=== PATIENT | female | born 2000 | race Two or more races ===

== ENCOUNTER 2021-06-29 18:24 | Emergency (ER) | payer MEDICAID ==
--- NOTE | 2021-06-29 19:47 | ERPHSYRPT ---
- History of Present Illness Historian: patient Exam Limitations: no limitations Patient Subjective Stated Complaint: Pt states that she woke up around 1400 today with her medial abdomen hurting, denies N&V but she did make herself vomit thinking she would feel better Triage Nursing Assessment: Pt was brought to the ER by her boyfriend, kat wnl, rates abdominal pain as a 4/10 but it did get up to a 9/10, skin n/w/d, pulses normal, pain with palpatation to her upper medial abdomen, last BM today, last intake yesterday, doesn't appear to be in any distress Physician History: 20 yo F w epigastric pain x 6 hrs. Pain is sharp, 3/10, and worse w movement. It has been up to a 10. She has had mild diarrhea wo N/V/dysuria/hematuria/fever/cough/coryza. Pt is fully vaccinated against CV19. Timing/Duration: other (6 hrs) Quality: sharpness Abdominal Pain Onset Location: epigastric Pain Radiation: no radiation Severity of Pain-Max: severe Severity of Pain-Current: mild Modifying Factors: Improves With: movement Associated Symptoms: diarrhea, No back, No chest pain, No diaphoresis, No fever/chills, No fatigue, No headache, No heartburn, No loss of appetite, No nausea, No neck pain, No rash, No shortness of breath, No syncope, No vomiting, No weakness Previous symptoms: no prior history Allergies/Adverse Reactions: No Known Drug Allergies Allergy (Verified 06/29/21 18:51) Home Medications: No Reportable Medications [No Reported Medications] 06/29/21 [History] Travel Risk - International Travel Have you traveled outside of the country in past 3 weeks: No - Coronavirus Screening Are you exhibiting any of the following symptoms?: No Close contact with a COVID-19 positive Pt in past 14-21 Days: No - Vaccine Status Have you recieved a Covid-19 vaccination: Yes 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 - Vaccination Dates Date of 2cond Vaccination (if applicable): 03/2021 - Review of Systems Constitutional: No Symptoms Eyes: No Symptoms Ears, Nose, & Throat: No Symptoms Respiratory: No Symptoms Cardiac: No Symptoms Abdominal/Gastrointestinal: No Symptoms, Abdominal Pain, Diarrhea Genitourinary Symptoms: No Symptoms Musculoskeletal: No Symptoms Skin: No Symptoms Neurological: No Symptoms Psychological: No Symptoms Endocrine: No Symptoms Hematologic/Lymphatic: No Symptoms Immunological/Allergic: No Symptoms - Past Medical History Pertinent Past Medical History: No - Past Surgical History Past Surgical History: No - Social History Smoking Status: Never smoker Exposure to second hand smoke: No Drug Use: none Patient Lives Alone: No Significant Family History: no pertinent family hx - Female History Hx Last Menstrual Period: 06/25/2021 Hx Now: No - Nursing Vital Signs Nursing Vital Signs: Initial Vital Signs Temperature 98.8 F 06/29/21 18:36 Pulse Rate 83 06/29/21 18:36 Blood Pressure 126/72 06/29/21 18:36 O2 Sat by Pulse Oximetry 98 06/29/21 18:36 Pain Scale Pain Intensity 4 WNL - Physical Exam General Appearance: no apparent distress Eye Exam: PERRL/EOMI, eyes nml inspection Ears, Nose, Throat Exam: normal ENT inspection, TMs normal, pharynx normal, moist mucous membranes Neck Exam: normal inspection, non-tender, supple, full range of motion, No meningismus, No mass, No Brudzinski, No Kernig's Respiratory Exam: normal breath sounds, lungs clear, airway intact Cardiovascular Exam: regular rate/rhythm, normal heart sounds, normal peripheral pulses, murmur Gastrointestinal/Abdomen Exam: soft, normal bowel sounds, tenderness (Mild epi gastric TTP wo guarding or rebound) Back Exam: normal inspection, normal range of motion, CVA tenderness, vertebral tenderness Extremity Exam: normal inspection Neurologic Exam: alert, oriented x 3, cooperative, 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, normal mood/affect, nml cerebellar function, sensation nml Skin Exam: normal color, warm, dry, No rash Lymphatic Exam: No adenopathy SpO2 Interpretation: normal SpO2: 97 O2 Delivery: Room Air - Course Nursing assessment & vital signs reviewed: Yes Ordered Tests: Active Orders 24 hr Category Date Time Status AMYLASE Stat Lab 06/29/21 20:10 Completed CBC W DIFF Stat Lab 06/29/21 20:10 Completed CMP Stat Lab 06/29/21 20:10 Completed CULTURE,URINE Stat Lab 06/29/21 19:44 Received HCG QUALITATIVE,SERUM Stat Lab 06/29/21 20:10 Completed LIPASE Stat Lab 06/29/21 20:10 Completed UA W/RFX UR CULTURE Stat Lab 06/29/21 19:44 Completed Lab/Rad Data: Laboratory Result Diagrams 06/29/21 20:10 06/29/21 20:10 Laboratory Results 06/29/21 06/29/21 06/29/21 Range/Units 20:10 20:10 20:10 WBC 9.8 (4.0-10.5) K/mm3 RBC 4.94 (4.1-5.4) M/mm3 Hgb 14.8 (12.0-16.0) gm/dl Hct 44.2 (35-47) % MCV 89.5 (78-100) fl MCH 30.0 (26-32) pg MCHC 33.5 (32-36) g/dl RDW 12.9 (11.5-14.0) % Plt Count 368 (150-450) K/mm3 MPV 9.9 (7.5-11.0) fl Gran % 79.1 H (36.0-66.0) % Eos # (Auto) 0.05 (0-0.5) Absolute Lymphs (auto) 1.41 (1.0-4.6) Absolute Monos (auto) 0.56 (0.0-1.3) Lymphocytes % 14.4 L (24.0-44.0) % Monocytes % 5.7 (0.0-12.0) % Eosinophils % 0.5 (0.00-5.0) % Basophils % 0.3 (0.0-0.4) % Absolute Granulocytes 7.72 H (1.4-6.9) Basophils # 0.03 (0-0.4) Sodium 137 (137-145) mmol/L Potassium 4.1 (3.5-5.1) mmol/L Chloride 104 (98-107) mmol/L Carbon Dioxide 21 L (22-30) mmol/L Anion Gap 15.6 H (5-15) MEQ/L BUN 7 (7-17) mg/dL Creatinine 0.60 (0.52-1.04) mg/dL Estimated GFR > 60.0 ML/MIN Glucose 90 (74-106) mg/dL Calcium 9.8 (8.4-10.2) mg/dL Total Bilirubin 0.50 (0.2-1.3) mg/dL AST 20 (14-36) U/L ALT 13 (0-35) U/L Alkaline Phosphatase 69 (38-126) U/L Serum Total Protein 8.1 (6.3-8.2) g/dL Albumin 4.8 (3.5-5.0) g/dL Amylase 95 (30-110) U/L Lipase 53 (23-300) U/L Serum , Qual NEGATIVE (Negative) Urine Color (YELLOW) Urine Appearance (CLEAR) Urine pH (5-6) Ur Specific [place] (1.005-1.025) Urine Protein (Negative) Urine Ketones (NEGATIVE) Urine Blood (0-5) Leo/ul Urine Nitrite (NEGATIVE) Urine Bilirubin (NEGATIVE) Urine Urobilinogen (0-1) mg/dL Ur Leukocyte Esterase (NEGATIVE) Urine WBC (Auto) (0-5) /HPF Urine RBC (Auto) (0-2) /HPF U Epithel Cells (Auto) (FEW) /HPF Urine Bacteria (Auto) (NEGATIVE) /HPF Urine Mucus (Auto) (NEGATIVE) /HPF Urine Culture Reflexed (NO) Urine Glucose (NEGATIVE) mg/dL 06/29/21 Range/Units 19:44 WBC (4.0-10.5) K/mm3 RBC (4.1-5.4) M/mm3 Hgb (12.0-16.0) gm/dl Hct (35-47) % MCV (78-100) fl MCH (26-32) pg MCHC (32-36) g/dl RDW (11.5-14.0) % Plt Count (150-450) K/mm3 MPV (7.5-11.0) fl Gran % (36.0-66.0) % Eos # (Auto) (0-0.5) Absolute Lymphs (auto) (1.0-4.6) Absolute Monos (auto) (0.0-1.3) Lymphocytes % (24.0-44.0) % Monocytes % (0.0-12.0) % Eosinophils % (0.00-5.0) % Basophils % (0.0-0.4) % Absolute Granulocytes (1.4-6.9) Basophils # (0-0.4) Sodium (137-145) mmol/L Potassium (3.5-5.1) mmol/L Chloride (98-107) mmol/L Carbon Dioxide (22-30) mmol/L Anion Gap (5-15) MEQ/L BUN (7-17) mg/dL Creatinine (0.52-1.04) mg/dL Estimated GFR ML/MIN Glucose (74-106) mg/dL Calcium (8.4-10.2) mg/dL Total Bilirubin (0.2-1.3) mg/dL AST (14-36) U/L ALT (0-35) U/L Alkaline Phosphatase (38-126) U/L Serum Total Protein (6.3-8.2) g/dL Albumin (3.5-5.0) g/dL Amylase (30-110) U/L Lipase (23-300) U/L Serum , Qual (Negative) Urine Color YELLOW (YELLOW) Urine Appearance SLIGHTLY CLOUDY (CLEAR) Urine pH 5.0 (5-6) Ur Specific [place] 1.021 (1.005-1.025) Urine Protein 30 (Negative) Urine Ketones TRACE (NEGATIVE) Urine Blood SMALL (0-5) Leo/ul Urine Nitrite NEGATIVE (NEGATIVE) Urine Bilirubin NEGATIVE (NEGATIVE) Urine Urobilinogen NEGATIVE (0-1) mg/dL Ur Leukocyte Esterase NEGATIVE (NEGATIVE) Urine WBC (Auto) 0-2 (0-5) /HPF Urine RBC (Auto) 0-2 (0-2) /HPF U Epithel Cells (Auto) RARE (FEW) /HPF Urine Bacteria (Auto) RARE (NEGATIVE) /HPF Urine Mucus (Auto) SLIGHT (NEGATIVE) /HPF Urine Culture Reflexed YES (NO) Urine Glucose NEGATIVE (NEGATIVE) mg/dL - Progress Progress: improved Progress Note: 06/29/21 20:56 Pt painfree before discharge wo any treatment Will no CT at this time as Blood work/UA wnl and pt painfree Counseled pt/family regarding: lab results, diagnosis, need for follow-up - Departure Departure Disposition: Home Clinical Impression: Abdominal pain Condition: Stable Critical Care Time: No Referrals: DOCTOR,NO FAMILY [Primary Care Provider] - Instructions: Acute Abdomen (Belly Pain), Adult (DC) Additional Instructions: Return to ER for increasing abdominal pain or temperature greater than 100.5 Follow up with your family
[2021-06-29 20:10] LABS: Appearance SLIGHTLY CLOUDY (CLEAR); Bacteria RARE /HPF (NEGATIVE); Bilirubin NEGATIVE (NEGATIVE); Blood SMALL Ery/ul (0-5); Epithelial Cells RARE /HPF (FEW); Glucose NEGATIVE (NEGATIVE); Ketones TRACE (NEGATIVE); Leukocyte Esterase NEGATIVE (NEGATIVE); Mucus SLIGHT /HPF (NEGATIVE); Nitrite NEGATIVE (NEGATIVE); Protein,Urine Dip 30 (Negative); RBC 0-2 /HPF (0-2); Specific Gravity 1.021 (1.005-1.025); Urobilinogen NEGATIVE mg/dL (0-1); WBC 0-2 /HPF (0-5)
[2021-06-29 20:20] LABS: Absolute Neutrophil Ct (ANC) 7.72 (1.4-6.9); BASOPHIL % 0.3 % (0.0-0.4); Basophil (Absolute #) 0.03 (0-0.4); Eosinophil % 0.5 % (0.00-5.0); Eosinophil (Absolute #) 0.05 (0-0.5); Hematocrit 44.2 % (35-47); Hemoglobin 14.8 gm/dl (12.0-16.0); Lymphocyte (Absolute #) 1.41 (1.0-4.6); Lymphocytes % 14.4 % (24.0-44.0); Mean Cell Volume 89.5 fl (78-100); Mean Corpuscular Hgb Concent. 33.5 g/dl (32-36); Mean Platelet Volume 9.9 fl (7.5-11.0); Monocyte (Absolute #) 0.56 (0.0-1.3); Monocytes % 5.7 % (0.0-12.0); Neutrophil % 79.1 % (36.0-66.0); Platelet Count 368 K/mm3 (150-450); Red Blood Count 4.94 M/mm3 (4.1-5.4); Red Cell Distribution Width 12.9 % (11.5-14.0); White Blood Count 9.8 K/mm3 (4.0-10.5)
[2021-06-29 20:29] LABS: ALBUMIN 4.8 g/dL (3.5-5.0); ALKALINE PHOSPHATASE 69 U/L (38-126); AMYLASE 95 U/L (30-110); ANION GAP 15.6 MEQ/L (5-15); BLOOD UREA NITROGEN 7 mg/dL (7-17); CHLORIDE 104 mmol/L (98-107); Calcium 9.8 mg/dL (8.4-10.2); Carbon Dioxide 21 mmol/L (22-30); EST GLOMERULAR FILTRATION RATE > 60.0 ML/MIN; Glucose 90 mg/dL (74-106); LIPASE 53 U/L (23-300); Potassium 4.1 mmol/L (3.5-5.1); SGOT/AST 20 U/L (14-36); SGPT/ALT 13 U/L (0-35); SODIUM 137 mmol/L (137-145); Total Protein 8.1 g/dL (6.3-8.2)
[2021-06-29 20:59] VITALS: O2SAT 97
[2021-06-29 21:00] VITALS: BP 109/82; PULSE 81
== END 2021-06-29 21:04 | disposition home or self-care (01) ==
LOC: ED 18:24
DX: R10.13 Epigastric pain (principal); R19.7 Diarrhea, unspecified
CPT/HCPCS: 36415; 80053; 81001; 81025; 82150; 83690; 85025; 87086; 99283

== ENCOUNTER 2022-06-22 15:44 | Emergency (ER) | payer MEDICAID ==
[2022-06-22] MEDS ORDERED: MORPHINE SULFATE 2 MG INJ IV ONE ×2 (16:18→18:54)
[2022-06-22] MEDS ORDERED: Zofran 4 MG/2 ML VIAL IV ONE (16:18)
[2022-06-22] MEDS ORDERED: Zofran 4 MG/2 ML VIAL ONE (16:29)
[2022-06-22] MEDS ORDERED: Sodium Chloride 0.9% 1000 ML 1,000 ML ONE (16:29)
[2022-06-22] MEDS ORDERED: MORPHINE SULFATE 2 MG INJ ONE ×2 (16:29→19:03)
[2022-06-22] MEDS ORDERED: Sodium Chloride 0.9% 1000 ML 1,000 ML IV SCH (16:30)
[2022-06-22 16:38] LABS: Absolute Neutrophil Ct (ANC) 4.87 x10^3/uL (1.4-6.9); Basophil (Absolute #) 0.04 x10^3/uL (0-0.4); Eosinophil (Absolute #) 0.08 x10^3/uL (0-0.5); Hematocrit 43.8 % (35-47); Hemoglobin 14.9 g/dL (12.0-16.0); Lymphocytes % 27.4 % (24.0-44.0); Mean Cell Volume 87.3 fL (78-100); Mean Corpuscular Hemoglobin 29.7 pg (26-32); Mean Platelet Volume 10.1 fL (7.5-11.0); Monocyte (Absolute #) 0.55 x10^3/uL (0.0-1.3); Monocytes % 7.2 % (0.0-12.0); Neutrophil % 63.6 % (36.0-66.0); Platelet Count 384 x10^3/uL (150-450); Red Blood Count 5.02 x10^6/uL (4.1-5.4); Red Cell Distribution Width 12.2 % (11.5-14.0); White Blood Count 7.7 x10^3/uL (4.0-10.5)
[2022-06-22 16:54] LABS: Bacteria FEW /HPF (NEGATIVE); Epithelial Cells FEW /HPF (FEW); Mucus SLIGHT /HPF (NEGATIVE)
[2022-06-22 16:56] LABS: ALBUMIN 5.1 g/dL (3.5-5.0); ALKALINE PHOSPHATASE 86 U/L (38-126); ANION GAP 17.3 MEQ/L (5-15); BLOOD UREA NITROGEN 10 mg/dL (7-17); CHLORIDE 102 mmol/L (98-107); Calcium 9.9 mg/dL (8.4-10.2); Carbon Dioxide 21 mmol/L (22-30); Creatinine 1 0.62 mg/dL (0.52-1.04); EST GLOMERULAR FILTRATION RATE > 60.0 ML/MIN; Glucose 95 mg/dL (74-106); LIPASE 63 U/L (23-300); Potassium 4.1 mmol/L (3.5-5.1); SGOT/AST 23 U/L (14-36); SGPT/ALT 22 U/L (0-35); SODIUM 136 mmol/L (137-145); Total Protein 8.6 g/dL (6.3-8.2)
[2022-06-22 16:57] LABS: Appearance SLIGHTLY CLOUDY (CLEAR); Bilirubin NEGATIVE (NEGATIVE); Dipstick done @ ? MAIN LAB; Glucose NEGATIVE (NEGATIVE); Ketones LARGE-80 (NEGATIVE); Nitrite POSITIVE (NEGATIVE); Protein,Urine Dip 30 (Negative); RBC MODERATE Ery/ul (0-5); Specific Gravity >=1.030 (1.005-1.025); Urine Cultured Indicated? YES; Urobilinogen 0.2 mg/dL (0-1)
--- NOTE | 2022-06-22 18:54 | ERPHSYRPT ---
- History of Present Illness Time Seen by Provider: 06/22/22 16:10 Historian: patient Exam Limitations: no limitations Patient Subjective Stated Complaint: Pt states "I have had lower right belly pain since tuesday. I eat and it is ok, I took a laxative yesterday and that was not it. I do not know what is going on." Triage Nursing Assessment: Pt presented alert and oriented X 3, skin pwd. Pt ambulates with an upright steady gait, able to speak in clear full sentences. Pt in no apparent respiratory distress. Pt resting comfortably on the bed. Physician History: Patient is a 21-year-old female presents to emergency department for evaluation of abdominal pain. Abdominal pain started 2 days ago. Pain has been in termittent. Patient tried a laxative which did not help. Symptoms are intermittent. Symptoms are mild to moderate in intensity. No specific worsening from factors. No trauma. No nausea vomiting or diarrhea. Patient denies history of the same. She states she is otherwise healthy. Patient voi cassandra no other complaints or concerns at this time. Portions of this note were created with voice recognition technology. There may be grammatical, spelling, punctuation or sound alike errors Timing/Duration: yesterday Activities at Onset: none Quality: aching Abdominal Pain Onset Location: RLQ Pain Radiation: no radiation Severity of Pain-Max: moderate Severity of Pain-Current: mild Associated Symptoms: denies symptoms Previous symptoms: no prior history Allergies/Adverse Reactions: No Known Drug Allergies Allergy (Verified 06/29/21 18:51) Home Medications: No Reportable Medications [No Reported Medications] 06/29/21 [History] Hx Tetanus, Diphtheria Vaccination/Date Given: Yes Hx Influenza Vaccination/Date Given: Yes Hx Pneumococcal Vaccination/Date Given: No Immunizations Up to Date: Yes Travel Risk - International Travel Have you traveled outside of the country in past 3 weeks: No - Coronavirus Screening Are you exhibiting any of the following symptoms?: No Close contact with a COVID-19 positive Pt in past 14-21 Days: No - Vaccine Status Have you recieved a Covid-19 vaccination: Yes Rcp: Moderna - Vaccination Dates Date of 2cond Vaccination (if applicable): 03/2021 - Review of Systems Constitutional: No Symptoms, No Fever, No Chills Eyes: No Symptoms Ears, Nose, & Throat: No Symptoms Respiratory: No Symptoms, No Cough, No Dyspnea Cardiac: No Symptoms, No Chest Pain, No Edema, No Syncope Abdominal/Gastrointestinal: No Symptoms, No Abdominal Pain, No Nausea, No Vomiting, No Diarrhea Genitourinary Symptoms: No Symptoms, No Dysuria Musculoskeletal: No Symptoms, No Back Pain, No Neck Pain Skin: No Symptoms, No Rash Neurological: No Symptoms, No Dizziness, No Focal Weakness, No Sensory Changes Psychological: No Symptoms Endocrine: No Symptoms Hematologic/Lymphatic: No Symptoms Immunological/Allergic: No Symptoms All Other Systems: Reviewed and Negative - Past Medical History Pertinent Past Medical History: No - Past Surgical History Past Surgical History: No - Social History Smoking Status: Current every day smoker How long have you smoked: years Exposure to second hand smoke: Yes Drug Use: none Patient Lives Alone: Yes Significant Family History: no pertinent family hx - Female History Hx Last Menstrual Period: 06/03/2022 Hx Now: No (unknown) - Nursing Vital Signs Nursing Vital Signs: Initial Vital Signs Temperature 98.7 F 06/22/22 16:05 Pulse Rate 98 H 06/22/22 16:05 Respiratory Rate 20 06/22/22 16:05 Blood Pressure 152/69 06/22/22 16:05 O2 Sat by Pulse Oximetry 95 06/22/22 16:05 Pain Scale Pain Intensity 4 - Physical Exam General Appearance: no apparent distress, alert Eye Exam: PERRL/EOMI, eyes nml inspection Ears, Nose, Throat Exam: normal ENT inspection, TMs normal, pharynx normal, moist mucous membranes Neck Exam: normal inspection, non-tender, supple, full range of motion Respiratory Exam: normal breath sounds, lungs clear, airway intact, No respiratory distress Cardiovascular Exam: regular rate/rhythm, normal heart sounds, normal peripheral pulses Gastrointestinal/Abdomen Exam: soft, other (Tenderness palpation right lower quadrant.), No tenderness, No mass Back Exam: normal inspection, normal range of motion, No CVA tenderness, No vertebral tenderness Extremity Exam: normal inspection, normal range of motion, pelvis stable Neurologic Exam: alert, oriented x 3, cooperative, normal mood/affect, nml c erebellar function, sensation nml, No motor deficits Skin Exam: normal color, warm, dry, No jaundice SpO2 Interpretation: normal SpO2: 99 O2 Delivery: Room Air - Course Nursing assessment & vital signs reviewed: Yes - CT Exams Abdomen/Pelvis CT Interpretation: Tele-radiologist Report (No comps. Normal appendectomy. Collapsing right ovarian cyst with tiny cul-de-sac fluid. Remaining abdomen pelvis negative.) Ordered Tests: Active Orders 24 hr Category Date Time Status IV Insertion STAT Care 06/22/22 16:18 Active ABDOMEN AND PELVIS W CONTRAST [CT] Stat Exams 06/22/22 16:18 Taken CBC W DIFF Stat Lab 06/22/22 16:20 Completed CMP Stat Lab 06/22/22 16:18 Completed CULTURE,URINE Stat Lab 06/22/22 16:26 Received HCG,QUALITATIVE URINE Stat Lab 06/22/22 16:25 Completed LIPASE Stat Lab 06/22/22 16:18 Completed UA W/RFX CULTURE Stat Lab 06/22/22 16:26 Completed Medication Summary Generic Name Dose Route Start Last Admin Trade Name Freq PRN Reason Stop Dose Admin Sodium Chloride 1,000 mls @ 100 mls/hr 06/22/22 16:30 06/22/22 16:30 Sodium Chloride 0.9% 1000 Ml IV 07/22/22 16:29 100 mls/hr .Q10H MARVIN Administration Discontinued Medications Generic Name Dose Route Start Last Admin Trade Name Freq PRN Reason Stop Dose Admin Ceftriaxone Sodium/Dextrose 1 g in 50 mls @ 100 mls/hr 06/22/22 18:55 06/22/22 19:40 Rocephin 1 Gm-D5w 50 Ml Bag IV 06/22/22 19:24 Infused STAT STA Infusion Ceftriaxone Sodium/Dextrose Confirm 06/22/22 19:03 Rocephin 1 Gm-D5w 50 Ml Bag Administered 06/22/22 19:04 Dose 1 g in 50 mls @ ud IV .STK-MED ONE Morphine Sulfate 2 mg 06/22/22 16:18 06/22/22 16:31 Morphine Sulfate 2 Mg/Ml Inj IV 06/22/22 16:19 2 mg STAT ONE Administration Morphine Sulfate Confirm 06/22/22 16:29 Morphine Sulfate 2 Mg/Ml Inj Administered 06/22/22 16:30 Dose 2 mg .ROUTE .STK-MED ONE Morphine Sulfate 2 mg 06/22/22 18:54 06/22/22 19:04 Morphine Sulfate 2 Mg/Ml Inj IV 06/22/22 18:55 2 mg STAT ONE Administration Morphine Sulfate Confirm 06/22/22 19:03 Morphine Sulfate 2 Mg/Ml Inj Administered 06/22/22 19:04 Dose 2 mg .ROUTE .STK-MED ONE Ondansetron HCl 4 mg 06/22/22 16:18 06/22/22 16:30 Ondansetron Hcl 4 Mg/2 Ml Vial IV 06/22/22 16:19 4 mg STAT ONE Administration Ondansetron HCl Confirm 06/22/22 16:29 Ondansetron Hcl 4 Mg/2 Ml Vial Administered 06/22/22 16:30 Dose 4 mg .ROUTE .STK-MED ONE Lab/Rad Data: Laboratory Result Diagrams 06/22/22 16:20 06/22/22 16:18 Laboratory Results 06/22/22 06/22/22 06/22/22 Range/Units 16:26 16:25 16:20 WBC 7.7 (4.0-10.5) x10^3/uL RBC 5.02 (4.1-5.4) x10^6/uL Hgb 14.9 (12.0-16.0) g/dL Hct 43.8 (35-47) % MCV 87.3 (78-100) fL MCH 29.7 (26-32) pg MCHC 34.0 (32-36) g/dL RDW 12.2 (11.5-14.0) % Plt Count 384 (150-450) x10^3/uL MPV 10.1 (7.5-11.0) fL Gran % 63.6 (36.0-66.0) % Immature Gran % (Auto) 0.3 (0.00-0.4) % Nucleat RBC Rel Count 0.0 (0.00-0.1) % Eos # (Auto) 0.08 (0-0.5) x10^3/uL Immature Gran # (Auto) 0.02 (0.00-0.03) x10^3u/L Absolute Lymphs (auto) 2.10 (1.0-4.6) x10^3/uL Absolute Monos (auto) 0.55 (0.0-1.3) x10^3/uL Absolute Nucleated RBC 0.00 (0.00-0.01) x10^3u/L Lymphocytes % 27.4 (24.0-44.0) % Monocytes % 7.2 (0.0-12.0) % Eosinophils % 1.0 (0.00-5.0) % Basophils % 0.5 (0.0-0.4) % Absolute Granulocytes 4.87 (1.4-6.9) x10^3/uL Basophils # 0.04 (0-0.4) x10^3/uL Sodium (137-145) mmol/L Potassium (3.5-5.1) mmol/L Chloride (98-107) mmol/L Carbon Dioxide (22-30) mmol/L Anion Gap (5-15) MEQ/L BUN (7-17) mg/dL Creatinine (0.52-1.04) mg/dL Estimated GFR ML/MIN Glucose (74-106) mg/dL Calcium (8.4-10.2) mg/dL Total Bilirubin (0.2-1.3) mg/dL AST (14-36) U/L ALT (0-35) U/L Alkaline Phosphatase (38-126) U/L Serum Total Protein (6.3-8.2) g/dL Albumin (3.5-5.0) g/dL Lipase (23-300) U/L Urinalys Dipstick Clnc MAIN LAB Urine Color YELLOW (YELLOW) Urine Appearance SLIGHTLY CLOUDY (CLEAR) Urine pH 6.0 (5-6) Ur Specific [place] >=1.030 (1.005-1.025) POC Urine Protein Conf 30 (Negative) Urine Ketones LARGE-80 (NEGATIVE) Urine Nitrite POSITIVE (NEGATIVE) Urine Bilirubin NEGATIVE (NEGATIVE) Urine Urobilinogen 0.2 (0-1) mg/dL Urine Leukocytes SMALL (NEGATIVE) Urine WBC (Auto) 16-25 (0-5) /HPF Urine RBC (Auto) 11-15 (0-2) /HPF U Epithel Cells (Auto) FEW (FEW) /HPF Urine Bacteria (Auto) FEW (NEGATIVE) /HPF Urine RBC MODERATE (0-5) Leo/ul Urine Mucus (Auto) SLIGHT (NEGATIVE) /HPF Ur Culture Indicated? YES Urine Glucose NEGATIVE (NEGATIVE) mg/dL Urine HCG, Qual NEGATIVE (Negative) 06/22/22 Range/Units 16:18 WBC (4.0-10.5) x10^3/uL RBC (4.1-5.4) x10^6/uL Hgb (12.0-16.0) g/dL Hct (35-47) % MCV (78-100) fL MCH (26-32) pg MCHC (32-36) g/dL RDW (11.5-14.0) % Plt Count (150-450) x10^3/uL MPV (7.5-11.0) fL Gran % (36.0-66.0) % Immature Gran % (Auto) (0.00-0.4) % Nucleat RBC Rel Count (0.00-0.1) % Eos # (Auto) (0-0.5) x10^3/uL Immature Gran # (Auto) (0.00-0.03) x10^3u/L Absolute Lymphs (auto) (1.0-4.6) x10^3/uL Absolute Monos (auto) (0.0-1.3) x10^3/uL Absolute Nucleated RBC (0.00-0.01) x10^3u/L Lymphocytes % (24.0-44.0) % Monocytes % (0.0-12.0) % Eosinophils % (0.00-5.0) % Basophils % (0.0-0.4) % Absolute Granulocytes (1.4-6.9) x10^3/uL Basophils # (0-0.4) x10^3/uL Sodium 136 L (137-145) mmol/L Potassium 4.1 (3.5-5.1) mmol/L Chloride 102 (98-107) mmol/L Carbon Dioxide 21 L (22-30) mmol/L Anion Gap 17.3 H (5-15) MEQ/L BUN 10 (7-17) mg/dL Creatinine 0.62 (0.52-1.04) mg/dL Estimated GFR > 60.0 ML/MIN Glucose 95 (74-106) mg/dL Calcium 9.9 (8.4-10.2) mg/dL Total Bilirubin 0.70 (0.2-1.3) mg/dL AST 23 (14-36) U/L ALT 22 (0-35) U/L Alkaline Phosphatase 86 (38-126) U/L Serum Total Protein 8.6 H (6.3-8.2) g/dL Albumin 5.1 H (3.5-5.0) g/dL Lipase 63 (23-300) U/L Urinalys Dipstick Clnc Urine Color (YELLOW) Urine Appearance (CLEAR) Urine pH (5-6) Ur Specific [place] (1.005-1.025) POC Urine Protein Conf (Negative) Urine Ketones (NEGATIVE) Urine Nitrite (NEGATIVE) Urine Bilirubin (NEGATIVE) Urine Urobilinogen (0-1) mg/dL Urine Leukocytes (NEGATIVE) Urine WBC (Auto) (0-5) /HPF Urine RBC (Auto) (0-2) /HPF U Epithel Cells (Auto) (FEW) /HPF Urine Bacteria (Auto) (NEGATIVE) /HPF Urine RBC (0-5) Leo/ul Urine Mucus (Auto) (NEGATIVE) /HPF Ur Culture Indicated? Urine Glucose (NEGATIVE) mg/dL Urine HCG, Qual (Negative) - Progress Progress: improved Progress Note: Patient presents to our ED with complaints of right lower quadrant pain. Patient has no pelvic pain no vaginal discharge. No concern for STI. Work-up reveals a urinary tract infection. CT abdomen pelvis otherwise negative. Appendix is normal. Patient received a dose of Rocephin in our ED. Patient reassessed. Pain significantly improved. Patient states he is ready for discharge. Will discharge home. She agrees to follow-up with primary care doctor within 48 hours for reevaluation. Portions of this note were created with voice recognition technology. There may be grammatical, spelling, punctuation or sound alike errors 06/22/22 21:07 Counseled pt/family regarding: diagnosis, need for follow-up, rad results - Departure Departure Disposition: Home Clinical Impression: UTI (urinary tract infection) Condition: Stable Critical Care Time: No Referrals: DOCTOR,NO FAMILY [Primary Care Provider] - Follow up/PCP as directed EDWIN CHING MD [ACTIVE STAFF] - Follow up/PCP as directed Additional Instructions: Discharge/Care Plan ZULEMA VILLALTA was seen on 06/22/22 in the Emergency Room. The patient was counseled regarding Diagnosis,Lab results, Imaging studies, need for follow up and when to return to the Emergency Room. Prescriptions given: Discharge Note I have spoken with the patient and/or caregivers. I have explained the patient's condition, diagnosis and treatment plan based on the information available to me at this time. I have answered the patient's and/or caregiver's questions and addressed any concerns. The patient and/or caregivers have as good understanding of the patient's diagnosis, condition and treatment plan as can be expected at this point. The vital signs have been stable. The patient's condition is stable and appropriate for discharge from the emergency department. The patient will pursue further outpatient evaluation with the primary care physician or other designated or consulting physician as outlined in the discharge instructions. The patient and/or caregivers are agreeable to this plan of care and follow-up instructions have been explained in detail. The patient and/or caregivers have received these instruction. The patient/and or caregivers are aware that any significant change in condition or worsening of symptoms should prompt an immediate return to this or the closest emergency department or call 911.
[2022-06-22] MEDS ORDERED: ROCEPHIN 1 Gm-D5w 50 ml Bag** 1 G/50 ML IVPB IV STA (18:55)
[2022-06-22] MEDS ORDERED: ROCEPHIN 1 Gm-D5w 50 ml Bag** 1 G/50 ML IVPB IV ONE (19:03)
[2022-06-22 21:07] VITALS: BP 126/76; PULSE 69
[2022-06-22 21:09] VITALS: O2SAT 99
--- NOTE | 2022-06-23 10:40 | XRAY ---
Exam: CT of the abdomen and pelvis with IV contrast from 06/22/2022. CTDI: 5.71 mGy Comparison: None. Indication: 21-year-old female with abdominal pain; consider appendicitis. Technique: Post-IV contrast axial images were obtained through the abdomen and pelvis during automated IV injection of 80 ML's of Isovue 370 contrast material. Delayed axial images were obtained as well. Reconstructed coronal and sagittal images were created and reviewed. Findings: The visualized lung bases are clear. The heart size is normal. The liver and spleen appear of normal size, shape, and uniform attenuation, except for perhaps a tiny probable 4 mm cyst at the inferior medial margin of the right hepatic lobe on axial image #29. No intrahepatic biliary duct distention is seen. The gallbladder is distended and reveals no dense calcifications within it. The pancreas and adrenal glands appear unremarkable. The kidneys are of normal size and shape. No renal calculi or hydronephrosis is seen. No renal mass is identified. The ureters appear of normal diameter without evidence of ureterolith. Both kidneys function on delay images. The aorta is of normal diameter, and I see no abnormal retroperitoneal lymphadenopathy. No free intraperitoneal air or bowel containing ventral abdominal wall hernia is seen. The appendix is seen within the right lower quadrant and appears unremarkable. No inflammatory changes are seen. The bowel is not distended. Within the pelvis, the uterus appears retroflexed. There appears to be a 1.6 cm x 1.1 cm oval-shaped cyst within the right ovary with a mildly hyperattenuated rim on axial image #69 and #70. This might be leaking, as there is a suggestion of a tiny amount of free fluid within the cul-de-sac. The remainder of the ovaries appears unremarkable. The urinary bladder appears relatively small which I believe accentuates the urinary bladder wall thickness. Correlate clinically to exclude cystitis. No other pelvic mass or abnormal pelvic lymphadenopathy is seen. Some small reactive lymph nodes are seen within each groin. The skeleton reveals no acute fracture or aggressive bone lesion. Impression: 1. No CT findings to suggest appendicitis within the right lower quadrant. The appendix appears unremarkable. 2. Small oval shaped right ovarian cyst with a hyperattenuated rim. This may be collapsing, as there appears to be a tiny amount of free fluid within the cul-de-sac. 3. Underdistended urinary bladder accentuates the urinary bladder wall thickness. Correlate clinically to exclude cystitis. 4. No other acute process is seen within the abdomen or pelvis.
== END 2022-06-22 21:22 | disposition home or self-care (01) ==
LOC: ED 15:44
DX: N39.0 Urinary tract infection, site not specified (principal); R10.9 Unspecified abdominal pain; Z72.0 Tobacco use
CPT/HCPCS: 36000; 36415; 74177; 80053; 81015; 81025; 83690; 85025; 87077; 87086; 87186; 96374; 96375; 99284; J0696; J2270; J2405